=== PATIENT | female | born 1945 | race Caucasian/White ===

== ENCOUNTER 2016-10-23 12:02 | Emergency (ER) | payer MEDICARE, MEDICAID ==
[2016-10-23 12:25] VITALS: BP 130/72
--- NOTE | 2016-10-23 12:42 | ER Document Report ---
ED Fall - General TRAVEL OUTSIDE OF THE [place] IN LAST 30 DAYS: No - General Chief Complaint: Fall Stated Complaint: FALL/HEAD LACERATION Notes: Patient is a 71-year-old female suffers from dementia who is a fall from standing today unwitnessed. No reported LOC. She denies headache, vomiting. Per EMS and facility she is at her baseline mental status and acting her normal appropriate self. She has not oriented to time. She denies any headache scratch that evidence of a 2 cm lack on her left eyebrow no evidence of bleeding. Otherwise she is not on blood thinners. 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-to-date (JUSTIN WILSON) - Related data Allergies/Adverse Reactions: No Known Allergies Allergy (Unverified 05/03/15 10:04) Past Medical History - General Information source: [facility] Records, Outside Facility Records - Social History Smoking Status: Unknown if Ever Smoked Family History: Reviewed & Not Pertinent Pulmonary Medical History: Reports: Hx Asthma Psychiatric Medical History: Reports: Hx Bipolar Disorder, Hx Dementia - Immunizations Immunizations up to date: Yes Hx Diphtheria, Pertussis, Tetanus Vaccination: Yes Review of Systems - Review of Systems Constitutional: No symptoms reported EENT: No symptoms reported Cardiovascular: No symptoms reported Respiratory: No symptoms reported Gastrointestinal: No symptoms reported Genitourinary: No symptoms reported Female Genitourinary: No symptoms reported Musculoskeletal: No symptoms reported Skin: No symptoms reported Hematologic/Lymphatic: No symptoms reported Neurological/Psychological: See HPI Physical Exam - Vital signs Vitals: Temp Pulse Resp BP Pulse Ox 97.9 F 78 16 130/72 H 94 10/23/16 12:23 10/23/16 12:23 10/23/16 12:23 10/23/16 12:23 10/23/16 12:23 (BRITTANI JAEGER) (JUSTIN WILSON) - Notes Notes: PHYSICAL EXAM GENERAL: Alert, quite and cooperative, interacts well. HEAD: Normocephalic, evidence of a 2 cm vertical back above left eyebrow no evidence of bleeding. Palpation. No evidence of other trauma of her scalp. EYES: Pupils equal, round, and reactive to light. Extraocular movements intact. ENT: Evidence of bruising over his left cheek bone no tenderness to palpation. Oral mucosa moist, tongue midline. NECK: Full range of motion. Supple. Trachea midline. LUNGS: Clear to auscultation bilaterally, no wheezes, rales, or rhonchi. No respiratory distress. HEART: Regular rate and rhythm. No murmurs, gallops, or rubs. ABDOMEN: Soft, nondistended, nontender. No guarding, rebound, or rigidity.. Bowel sounds present in all 4 quadrants. EXTREMITIES: Moves all 4 extremities spontaneously. No edema, radial and dorsalis pedis pulses 2/4 bilaterally. No cyanosis. NEUROLOGICAL: Alert and oriented to person and place but not to time. Normal speech. PSYCH: Normal affect, normal mood. SKIN: Warm, dry, normal turgor. No rashes or lesions noted. (JUSTIN WILSON) Course - Re-evaluation Re-evalutation: 10/23/16 12:44 Patient was presented to me by the advanced practitioner, we discussed the patient's case imaging and lab work concerns. Patient was evaluated by myself and I agree with the providers care plan (BRITTANI JAEGER) 10/23/16 13:37 patient has a history of recurrent falls due to dementia. Per EMS report and facility reports she was operating at her baseline mental status before she left. Currently hemodynamically stable. Pleasant and cooperative and afebrile. Skin lack was closed with Dermabond. CT of the head, facial bones and neck negative for any acute fractures. She'll be discharged home (JUSTIN WILSON) - Vital Signs Vital signs: Temp Pulse Resp BP Pulse Ox 97.9 F 78 16 130/72 H 94 10/23/16 12:23 10/23/16 12:23 10/23/16 12:23 10/23/16 12:23 10/23/16 12:23 (BRITTANI JAEGER) (JUSTIN WILSON) Discharge - Discharge Clinical Impression: Laceration Fall Qualifiers: Encounter type: initial encounter Qualified Code(s): W19.XXXA - Unspecified fall, initial encounter Condition: Good Disposition: HOME-ASSISTED LIVING Instructions: Soap Cleansing ([facility]) Additional Instructions: Facial Laceration A laceration on the face usually heals quickly. Our treatment goal will be to avoid an unsightly scar or stitch-miller. Your cut has been closed with the best techniques to avoid scarring, but a great deal depends on how well you protect the laceration -- and on your inherited tendency to scar. As facial cuts are usually caused by a blunt injury, it's usually best to rest for a day to avoid swelling. Do not allow any bumping or rubbing of the area. Keep the stitches dry. Follow the treatment plan the doctor has discussed with you and DO NOT DELAY getting the stitches out. Once stitches are removed, continue to protect the area from trauma and sunlight (use a sunscreen) for about six months. If any signs of infection occur (swelling, redness, increasing tenderness, red streaks, tender lumps in the neck or near the ear on the side of the laceration, or fever), see the doctor immediately. Forms: Elevated Blood Pressure
== END 2016-10-23 14:42 | disposition home health service (06) ==
LOC: ER 12:02
DX: S01.81XA Laceration without foreign body of other part of head, initial encounter (principal); W19.XXXA Unspecified fall, initial encounter; F03.90 Unspecified dementia, unspecified severity, without behavioral disturbance, psychotic disturbance, mood disturbance, and anxiety; R29.6 Repeated falls; J45.909 Unspecified asthma, uncomplicated
CPT/HCPCS: 70450; 70486; 72125; 99284

== ENCOUNTER 2016-11-11 12:50 | Emergency (ER) | payer MEDICARE, MEDICAID ==
--- NOTE | 2016-11-11 14:19 | ER Document Report ---
ED Fall - General Chief Complaint: Fall Stated Complaint: FALL,RIGHT KNEE PAIN Cannot obtain history due to: Dementia Notes: The patient is a 71-year-old female, past medical history Alzheimer's, presents after a mechanical fall from [employer] where she tripped and landed on her left knee. She also has dried blood in her left nares, but is unsure if she hit her head. Information provided by EMS. The patient is unable to provide any additional history. She is having pain in her left knee. TRAVEL OUTSIDE OF THE [place] IN LAST 30 DAYS: No - Related data Allergies/Adverse Reactions: No Known Allergies Allergy (Unverified 05/03/15 10:04) Past Medical History - General Information source: Emergency Med Personnel Cannot obtain history due to: Dementia - Social History Smoking Status: Unknown if Ever Smoked Family History: Reviewed & Not Pertinent Pulmonary Medical History: Reports: Hx Asthma Psychiatric Medical History: Reports: Hx Bipolar Disorder, Hx Dementia - Immunizations Immunizations up to date: Yes Hx Diphtheria, Pertussis, Tetanus Vaccination: Yes Review of Systems - Review of Systems -: Yes ROS unobtainable due to patient's medical condition Physical Exam - Vital signs Vitals: Temp Pulse BP Pulse Ox 97.5 F 91 136/79 H 97 11/11/16 13:17 02 13:17 11/11/16 13:17 11/11/16 13:17 - Notes Notes: PHYSICAL EXAMINATION: GENERAL: In no acute distress. HEAD: Atraumatic, normocephalic. EYES: Pupils equal round and reactive to light, extraocular movements intact, sclera anicteric, conjunctiva are normal. ENT: nares patent, small amount of dried blood in left nares, no active bleeding , no septal hematoma, oropharynx clear without exudates. Moist mucous membranes. NECK: Normal range of motion, supple without lymphadenopathy LUNGS: Breath sounds clear to auscultation bilaterally and equal. No wheezes rales or rhonchi. HEART: Regular rate and rhythm without murmurs ABDOMEN: Soft, nontender, normoactive bowel sounds. No guarding, no rebound. No masses appreciated. EXTREMITIES: Tenderness over left anterior knee, no open wounds or contusions, Normal range of motion, no pitting or edema. No cyanosis. NEUROLOGICAL: Cranial nerves grossly intact. Normal speech. Normal sensory exam. SKIN: Warm, Dry, normal turgor, no rashes or lesions noted. Course - Re-evaluation Re-evalutation: CT head and face do not show any fractures. Soft tissue swelling around her left knee, but no fractures. Patient ambulating around emergency room and is unable to be redirected due to her baseline Alzheimer's. Concerned about her safety due to recent fall. Will provide a small dose of Haldol until her ride comes to pick her up and [facility]. - Vital Signs Vital signs: Temp Pulse Resp BP Pulse Ox 97.5 F 91 136/79 H 97 11/11/16 13:17 02 13:17 02 13:17 11/11/16 13:17 Discharge - Discharge Clinical Impression: Contusion of knee, left Qualifiers: Encounter type: initial encounter Qualified Code(s): S80.02XA - Contusion of left knee, initial encounter Disposition: SNF Additional Instructions: The x-ray of your knee and CAT scan of her head and face do not show any fractures. Contusion Your injury has resulted in a contusion -- a crushing of the deep tissues. No injury to important structures was detected during the physician's exam. Contusions vary in the amount of pain they cause, and in the length of time required for healing. Typically, the area will become bruised, and will remain painful to touch for two or three weeks. However, most patients are back to working and playing within a few days. After the initial period of rest and cold-packs, your symptoms (together with the doctor's recommendations) will determine how rapidly you can get back to full activity. Usually this means "do what feels okay, but don't do things that hurt." If re-examination was recommended, it's important to follow up as instructed. Call the doctor or return any time if pain increases, if swelling becomes severe, if you develop numbness or weakness in an injured extremity, or if any other alarming symptoms occur.
[2016-11-11] MEDS ORDERED: HALOPERIDOL LACTATE INJ 5 MG/1 ML VIAL IM ONE (15:56)
[2016-11-11 16:48] VITALS: BP 139/90
== END 2016-11-11 16:50 ==
LOC: ER 12:50
DX: S80.02XA Contusion of left knee, initial encounter (principal); M25.562 Pain in left knee; W19.XXXA Unspecified fall, initial encounter; Y92.129 Unspecified place in nursing home as the place of occurrence of the external cause; J45.909 Unspecified asthma, uncomplicated; G30.9 Alzheimer's disease, unspecified; F02.80 Dementia in other diseases classified elsewhere, unspecified severity, without behavioral disturbance, psychotic disturbance, mood disturbance, and anxiety
CPT/HCPCS: 70450; 70486; 99285